=== PATIENT | male | born 1950 | race Caucasian/White ===

== ENCOUNTER 2017-09-04 13:27 | Emergency (ER) | payer MEDICARE, OTHER ==
--- NOTE | 2017-09-04 14:54 | ED Physician Documentation ---
PD HPI OPHTHO - Stated complaint Stated Complaint: LEFT EYE INJ - Chief complaint Chief Complaint: Heent - History obtained from History obtained from: Patient, Family - History of Present Illness Timing - onset: Today Timing - duration: Minutes Timing - details: Abrupt onset, Still present Location: Left Quality / character: Other (not much pain) Associated symptoms: Redness, Swelling. No: FB sensation, Photophobia, Double vision, Decreased vision, Loss of vision, Headache Contributing factors: Blunt trauma Similar symptoms before: Has not had sx before Recently seen: Not recently seen - Additional information Additional information: 66-year-old male was outside clearing brush when he was slapped in the left eye by a branch. He states that he had some immediate tearing he had some blood from the eye and he had some transient blurring of his vision. He denies any foreign body sensation he denies any pain with movement of the eye and he denies any persistent bleeding. Review of Systems Constitutional: denies: Fever Eyes: denies: Loss of vision, Decreased vision, Photophobia, Discharge, Irritation Ears: denies: Ear pain Nose: denies: Congestion Respiratory: denies: Cough PD PAST MEDICAL HISTORY - Past Medical History Past Medical History: No Other Past Medical History: HX malaria tx x2 - Past Surgical History Past Surgical History: Yes Ortho: Other - Present Medications Home Medications: Ambulatory Orders Medication Instructions Recorded Confirmed Neomycin/Poly/Dex Ophth Drops 1 drops LEFTEYE QID #1 bottle 09/04/17 [Maxitrol Ophth Drops] - Allergies Allergies/Adverse Reactions: Allergies Allergy/AdvReac Type Severity Reaction Status Date / Time Sulfa (Sulfonamide AdvReac Severe Anaphylaxis Verified 09/04/17 13:50 Antibiotics) - Social History Does the pt smoke?: No Smoking Status: Never smoker Does the pt drink ETOH?: Yes ETOH Use: Beer Does the pt have substance abuse?: No - Immunizations Immunizations are current?: Yes Immunizations: TDAP current <10years PD ED PE NORMAL - Vitals Vital signs reviewed: Yes (normal ) - General General: Alert and oriented X 3, No acute distress, Well developed/nourished - HEENT HEENT: PERRL, EOMI, Other (There is an impressive subconjunctival hemorrhage without evidence of hyphema or blood the posterior chamber. There is no restiction of movement to the extra-occular muscles. There is no FB under the lid and no trauma to the lid. ). No: Moist mucous membranes - Neck Neck: Supple, no meningeal sign, No bony TTP - Respiratory Respiratory: No respiratory distress - Derm Derm: Normal color, Warm and dry, No rash - Extremities Extremities: No deformity, No edema - Neuro Neuro: Alert and oriented X 3, No motor deficit, No sensory deficit, Normal speech Eye Opening: Spontaneous Motor: Obeys Commands Verbal: Oriented GCS Score: 15 - Psych Psych: Normal mood, Normal affect Results - Vitals Vitals: Vital Signs - 24 hr 09/04/17 13:46 Temperature 36.4 C L Heart Rate 53 L Respiratory 16 Rate Blood Pressure 122/75 O2 Saturation 98 Oxygen O2 Source Room air PD MEDICAL DECISION MAKING - ED course Complexity details: considered differential, d/w patient, d/w family ED course: 66-year-old male who ko over here from [facility] was clearing brush today when he was slapped in the face by a branch and has now an impressive subconjunctival hemorrhage without evidence of a hyphema or disruption of the globe. He has intact vision and no foreign body sensation. I discussed with the patient the natural history of subconjunctival hemorrhage and reasons to be concerned and return to the emergency department or to follow-up with ophthalmology. He is referred to Dr. Cardoso for follow-up as needed and I have asked him to use the Maxitrol eyedrops no longer than 3 days. - Sepsis Event Vital Signs: Vital Signs - 24 hr 09/04/17 13:46 Temperature 36.4 C L Heart Rate 53 L Respiratory 16 Rate Blood Pressure 122/75 O2 Saturation 98 Oxygen O2 Source Room air Departure - Departure Disposition: 01 Home, Self Care Clinical Impression: Subconjunctival hemorrhage of left eye Condition: Stable Instructions: ED Eye Injury Subconj Hemorrhage Follow-Up: Charlie Cardoso MD [Provider Admit Priv/Credential] - Prescriptions: Neomycin/Poly/Dex Ophth Drops [Maxitrol Ophth Drops] 1 drops LEFTEYE QID #1 bottle
[2017-09-04 15:22] VITALS: BP 107/74
== END 2017-09-04 15:20 | disposition home or self-care (01) ==
LOC: ED 13:27
DX: H11.32 Conjunctival hemorrhage, left eye (principal)
CPT/HCPCS: 99283

== ENCOUNTER 2018-10-22 09:18 | Outpatient (CLI) | payer MEDICARE, OTHER ==
--- NOTE | 2018-10-22 10:53 | CARDIAC PROCEDURE NOTE ---
DATE OF SERVICE: 10/22/2018 Physician: Lauren Gee MD, [facility] INDICATION: Dyspnea on exertion CARDIAC RISK FACTORS: Male gender, advanced age. PROCEDURE: After signing informed consent, patient underwent a Ino-protocol treadmill stress test. No imaging was ordered with this test. RESTING HEART RATE: 63. PEAK HEART RATE:150 (98% predicted maximum heart rate for age). RESTING BLOOD PRESSURE: 118/70. PEAK BLOOD PRESSURE: 150/65. Patient exercised for 4 minutes and 38 seconds on a Ion-protocol treadmill stress test. He achieved a peak heart rate of 150 (98% predicted max HR), and 6.6 METS. Patient described mild shortness of breath at stage I and then moderate to severe shortness of breath in stage II. Oxygen saturation was 96% in stage I and 97% at peak, on room air. Patient had no chest pain during this test. Patient had no "lightheadedness" which he also sometimes has with exertion. RESTING EKG: Normal sinus rhythm, left atrial and right atrial enlargement, right IVCD, RSR' in V1 and V2, early R/S transition. (These findings suggest right heart disease, ie. cor pulmonale). EKG AT PEAK: New ST segment depressions, upsloping, in V3 through V6. Rare PVC. SUMMARY: 1. Abnormal resting EKG consistent with cor pulmonale. 2. Poor exercise tolerance. 3. Nonspecific changes for coronary ischemia by EKG criteria. 4. No imaging was ordered with this test. RECOMMENDATIONS: 1. Repeat evaluation for coronary artery disease with an imaging stress test (stress-Echo, Lexiscan-nuclear test for example). 2. Consider 24-hour Holter monitor. 3. Recommend an Echo to evaluate for valvular heart disease and cor pulmonale. TD: 10/22/2018 10:33 MTDCarie
== END 2018-10-22 09:19 | disposition home or self-care (01) ==
LOC: DI 09:18
PROVIDERS: ATTEND Internal Medicine
DX: R06.09 Other forms of dyspnea (principal); R94.31 Abnormal electrocardiogram [ECG] [EKG]
CPT/HCPCS: 93017

== ENCOUNTER 2018-10-28 07:57 | Outpatient (CLI) | payer MEDICARE, OTHER | END 2018-10-28 07:58 | disposition home or self-care (01) | LOC: DI 07:57 | PROVIDERS: ATTEND Internal Medicine | DX: R94.30 Abnormal result of cardiovascular function study, unspecified (principal) | CPT/HCPCS: 93306 ==

== ENCOUNTER 2020-03-16 08:48 | Outpatient (CLI) | payer MEDICARE, OTHER ==
--- NOTE | 2020-03-16 13:41 | CT Report ---
PROCEDURE: UPPER EXTREMITY WO - LT INDICATIONS: PAIN IN LT SHLDR TECHNIQUE: Noncontrast 3 mm axial sections acquired of the left shoulder, with coronal and sagittal reformats. COMPARISON: None. FINDINGS: Image quality: Excellent. Bones: Shoulder alignment is anatomic. Moderate acromioclavicular joint and glenohumeral joint osteo arthritic changes are seen with joint space narrowing, subchondral sclerosis and small marginal osteo phyte formation. Benign subcortical sclerotic focus in glenoid is seen. No suspicious intraosseous le chloe. No fracture or dislocation. Visualized left upper ribs are intact. Soft tissues: Calcification over superior aspect of greater tuberosity at the distal supraspinatus i nsertion is seen consistent with calcific tendinitis. No full-thickness rotator cuff tendon rupture i s seen. No significant joint effusion or calcified intra-articular loose body. Sagittal images shows no significant rotator cuff muscle atrophy. IMPRESSION: 1. Moderate glenohumeral joint osteoarthritis and mild to moderate acromioclavicular joint osteoarthr itis. No fracture or dislocation. No suspicious intraosseous lesion. 2. Suggestion of calcific tendinitis involving distal supraspinatus with calcification over greater t uberosity. No full-thickness rotator cuff tendon rupture. No significant joint effusion or calcified intra-articular loose body. Reviewed by: Diogo Aldana MD on 03/16/2020 1:39 PM PST Approved by: Diogo Aldana MD on 03/16/2020 1:39 PM PST Station ID: [id number]
== END 2020-03-16 08:49 | disposition home or self-care (01) ==
LOC: DI 08:48
PROVIDERS: ATTEND Nurse Practitioner Family
DX: M19.012 Primary osteoarthritis, left shoulder (principal)

== ENCOUNTER 2021-06-20 11:15 | Outpatient (CLI) | payer MEDICARE, OTHER ==
--- NOTE | 2021-06-20 12:56 | Ultrasound Report ---
PROCEDURE: Bladder INDICATIONS: HESITANCY OF MICTURITION TECHNIQUE: Real-time scanning was performed of the bladder, with image documentation. COMPARISON: None. TECHNIQUE: Sonographic evaluation of the urinary bladder was performed. FINDINGS: URINARY BLADDER: No appreciable wall thickening or mass. Prevoid volume: 197 mL. Post void volume: 49 mL. Micturated volume: 147 mL Both ureteral jets are visualized. OTHER: Enlargement of the prostate measures 6.2 x 5.1 x 5.3 cm. IMPRESSION: 1.Prostatomegaly as detailed above. Reviewed by: Enrike Rowe MD on 06/20/2021 12:55 PM PDT Approved by: Enrike Rowe MD on 06/20/2021 12:55 PM PDT Station ID: [id number]
== END 2021-06-20 11:16 | disposition home or self-care (01) ==
LOC: DI 11:15
PROVIDERS: ATTEND Internal Medicine
DX: N40.1 Benign prostatic hyperplasia with lower urinary tract symptoms (principal); R39.11 Hesitancy of micturition

== ENCOUNTER 2022-06-07 13:33 | Outpatient (CLI) | payer MEDICARE, OTHER ==
--- NOTE | 2022-06-07 15:57 | MRI Report ---
PROCEDURE: LUMBAR SPINE WO INDICATIONS: LOW BACK PAIN TECHNIQUE: Noncontrast sagittal T1 spin echo and T2 fast echo, sagittal STIR, axial T1 and T2 fast spin echo thr ough the lumbar spine. In cases with scoliosis, additional coronal T2 fast spin echo may be performe d. COMPARISON: None. FINDINGS: Image quality: Excellent. Alignment and Curvature: There is normal bony alignment. Bone Marrow: Marrow is of normal overall signal. Minimal reactive endplate changes are present at L1 -2, L2-3. No acute vertebral body compression fractures. Spinal Cord: Conus medullaris terminates at the L1 level. Visualized cord demonstrates normal signa l and size. Paraspinous Soft Tissues: No paravertebral masses. Simple superior pole left renal cyst. There is a complex focus of signal intensity within the posterior aspect of the left mid pole. No priors are av ailable for comparison. Moderate disc desiccation is present throughout the lumbar spine. T12-L1: Mild disc bulge without spinal stenosis or foraminal narrowing. Mild facet and ligamentum fl avum hypertrophy. L1-L2: Minimal disc bulge without spinal stenosis. [id number] bilateral foraminal narrowing with facet and ligamentum flavum hypertrophy. L2-L3: Mild disc bulge without spinal stenosis. Mild right foraminal narrowing with facet and liga mentum flavum hypertrophy. L3-L4: Mild disc bulge without spinal stenosis. [id number] left foraminal narrowing with face t and ligamentum flavum hypertrophy. L4-L5: Minimal disc bulge without spinal stenosis. Moderate left and minimal right foraminal narrow ing with facet and ligamentum flavum hypertrophy. L5-S1: Mild disc bulge without spinal stenosis. Moderate left and mild right foraminal narrowing wi th facet and ligamentum flavum hypertrophy. IMPRESSION: Multilevel disc bulges. Multilevel foraminal narrowing most severe at L4-5 and L5-S1 secondary to facet arthropathy. Complex focus of intensity within the left kidney without priors available for comparison. While this could represent complex cyst, other etiologies cannot be excluded. Follow-up with ultrasound or CT f or further evaluation. Reviewed by: Radha Valenzuela MD on 06/07/2022 3:55 PM PDT Approved by: Radha Valenzuela MD on 06/07/2022 3:55 PM PDT Station ID: [id number]
== END 2022-06-07 13:34 | disposition home or self-care (01) ==
LOC: DI 13:33
PROVIDERS: ATTEND Physical Medicine & Rehabilitation Sports Medicine
DX: M51.35 Other intervertebral disc degeneration, thoracolumbar region (principal); M51.36 Other intervertebral disc degeneration, lumbar region; M47.815 Spondylosis without myelopathy or radiculopathy, thoracolumbar region; M47.816 Spondylosis without myelopathy or radiculopathy, lumbar region; M48.061 Spinal stenosis, lumbar region without neurogenic claudication; M51.37 Other intervertebral disc degeneration, lumbosacral region; M48.07 Spinal stenosis, lumbosacral region; M47.817 Spondylosis without myelopathy or radiculopathy, lumbosacral region

== ENCOUNTER 2022-08-07 18:05 | Outpatient (CLI) | payer MEDICARE, OTHER ==
--- NOTE | 2022-08-08 12:13 | Ultrasound Report ---
PROCEDURE: Retroperitoneal INDICATIONS: RENAL MASS TECHNIQUE: Real-time scanning was performed of the retroperitoneal organs, with image documentation. COMPARISON: MR 06/07/2022 FINDINGS: Kidneys: Kidneys are normal in size. Right kidney measures 10.8 cm long; left kidney measures 11.4 cm long. Right renal cortical thickness is 1.1 cm; left renal cortical thickness is 1.0 cm. The know n posterior left renal mass is not well appreciated. There is a benign cyst on the superior pole. Bladder: Pre-void bladder volume is 64 mL. Post-void residual is 2 mL. Pre-void images demonstrate no intraluminal masses or stones. On pre-void images, neither ureteral jets are noted with color Do ppler interrogation. (Of note, ureteral jets may not be detectable in up to 25% of cases due to insu fficient differences in specific gravity between ureteral and bladder urine). Miscellaneous: No free abdominal fluid. Prostatomegaly, measuring 73 g. IMPRESSION: The complex lesion on the posterior margin of the left kidney is not appreciated on this ultrasound. Consider CT or MRI (renal mass protocol) for further characterization based on appearance on comparis on lumbar CT. Reviewed by: Speedy Winn on 08/08/2022 12:11 PM PDT Approved by: Speedy Winn on 08/08/2022 12:11 PM PDT Station ID: [id number]
== END 2022-08-07 18:06 | disposition home or self-care (01) ==
LOC: DI 18:05
PROVIDERS: ATTEND Family Medicine
DX: N28.89 Other specified disorders of kidney and ureter (principal)

== ENCOUNTER 2022-08-15 11:51 | Outpatient (CLI) | payer MEDICARE, OTHER ==
[2022-08-15] MEDS ORDERED: iohexoL-300 100 ML VIAL ONE (12:13)
[2022-08-15] MEDS ORDERED: iohexoL-300 100 ML VIAL IVP ONE (12:26)
--- NOTE | 2022-08-15 14:53 | CT Report ---
PROCEDURE: ABDOMEN W/WO INDICATIONS: KIDNEY CYST CONTRAST: 140ml Omnipaque 300 TECHNIQUE: [address] scan of the kidneys was performed. Non-contrast and multiphasic contrast images were recor ded and evaluated at appropriate window settings. Reformats: coronal and sagittal. For radiation dose reduction, the following was used: automated exposure control, adjustment of mA and/or kV according to patient size. COMPARISON: Lumbar MRI 06/07/2022, ultrasound 08/07/2022 FINDINGS: Image quality: Excellent. Genitourinary: Along the posterior margin of the left kidney, there is a 1.0 cm hypoattenuating lesi on which demonstrates enhancement, which increases on the delayed phase. Renal vein is widely patent. No retroperitoneal adenopathy. No extension beyond the renal fascia. OTHER: Lung bases and heart: Unremarkable. Liver: Subcentimter hypoattenuating liver lesions, too small to characterize by CT. Gallbladder and biliary tree: Cholelithiasis without wall thickening. No biliary dilation. Spleen: No splenomegaly. Pancreas: No pancreatic ductal dilation. Adrenals: No adrenal nodule. Bowel and peritoneum: No bowel distension. No pathologic free fluid. Lymph nodes: No central or retroperitoneal adenopathy. Vessels: No infrarenal aortic aneurysm. Bones: No aggressive osseous abnormality. Other: No significant ventral hernia. IMPRESSION: Along the posterior margin of the left kidney, there is a 1.0 cm hypoattenuating lesion which demonst rates enhancement, which increases on the delayed phase. Findings suggest a tiny renal cell carcinoma versus lipid poor angiomyolipoma. Recommend urology referral. Cholelithiasis without evidence of acute cholecystitis. Reviewed by: Speedy Winn on 08/15/2022 2:52 PM PDT Approved by: Speedy Winn on 08/15/2022 2:52 PM PDT Station ID: [id number]
== END 2022-08-15 11:52 | disposition home or self-care (01) ==
LOC: DI 11:51
PROVIDERS: ATTEND Family Medicine
DX: N28.1 Cyst of kidney, acquired (principal); K80.20 Calculus of gallbladder without cholecystitis without obstruction
CPT/HCPCS: 74170; Q9967

== ENCOUNTER 2022-10-23 09:44 | Day surgery (SDC) | payer MEDICARE, OTHER ==
[2022-10-23] MEDS ORDERED: LACTATED RINGERS 1,000 ML IV ONE (09:55)
--- NOTE | 2022-10-23 10:25 | ANESTHESIA ---
Pre-Anesthesia VS, & Labs - Diagnosis screening - Procedure colonoscopy Vital Signs: Temp Pulse Resp BP Pulse Ox O2 Flow Rate 36.2 C L 83 14 125/72 98 10/23/22 10:02 10/23/22 10:02 10/23/22 10:02 10/23/22 10:16 10/23/22 10:02 Height: 6 ft 1 in Weight (kg): 77 kg Body Mass Index: 22.4 BMI Classification: Normal - NPO >8 hours - Lab Results Lab results reviewed: No Home Medications and Allergies Home Medications: Ambulatory Orders Celecoxib [CeleBREX] 200 mg PO DAILY PRN 10/23/22 Celecoxib [CeleBREX] 200 mg PO DAILY PRN 10/23/22 Allergies/Adverse Reactions: Allergies Allergy/AdvReac Type Severity Reaction Status Date / Time Sulfa (Sulfonamide AdvReac Severe Anaphylaxis Verified 10/23/22 09:52 Antibiotics) Anes History & Medical History - Anesthetic History Anesthesia Complications: reports: No previous complications Family history of Anesthesia Complications: Denies Family history of Malignant Hyperthermia: Denies - Medical History Cardiovascular: reports: None Pulmonary: reports: None Gastrointestinal: reports: None, Other Urinary: reports: None Musculoskeletal: reports: Chronic back pain Smoking Status: Never smoker Psychosocial: reports: Alcohol - Surgical History Orthopedic: reports: Hip replacement, Other Exam General: Alert, Oriented x3, Cooperative Dental: WNL Mouth Openin Fingerbreadth Neck Mobility: Normal Thyromental Distance: 4-6 cm Respiratory: Lungs clear, Normal breath sounds, No respiratory distress Cardiovascular: Regular rate Neurological: Normal speech Mental/Cognitive Status: Alert/Oriented X3, Normal for patient Cognitive Status: Within normal limits Plan Anesthesia Type: Total IV Consent for Procedure(s) Verified and Reviewed: Yes Code Status: Attempt Resuscitation ASA classification: 2-Mild systemic disease Is this case an emergency?: No
[2022-10-23] MEDS ORDERED: PROPOFOL 500 MG/50 ML 500 MG/50 ML VIAL ONE (10:47)
[2022-10-23] MEDS ORDERED: MIDAZOLAM 2 MG/2 ML VIAL ONE (10:47)
[2022-10-23] MEDS ORDERED: LIDOCAINE-MPF 2% 5 ML VIAL ONE (11:12)
[2022-10-23] MEDS ORDERED: LACTATED RINGERS 400 ML IV ONE (11:30)
[2022-10-23 11:44] VITALS: O2SAT 96
[2022-10-23 12:13] VITALS: BP 120/90
--- NOTE | 2022-10-23 12:50 | ANESTHESIA POST OP EVALUATION ---
Anesthesia Post Eval - Post Anesthesia Eval Vitals: Last Vital Signs Temp 36.2 C L 10/23/22 12:04 Pulse 66 10/23/22 12:04 Resp 16 10/23/22 12:04 BP 120/90 H 10/23/22 12:04 Pulse Ox 96 10/23/22 12:04 O2 Flow Rate CV Function Including HR & BP: Stable Pain Control: Satisfactory Nausea & Vomiting: Negative Mental Status: Baseline Respiratory Status: Airway Patent Hydration Status: Satisfactory Anesthesia Complications: None
== END 2022-10-23 09:45 | disposition home or self-care (01) ==
LOC: SDS 09:44
PROVIDERS: ATTEND Surgery
PROC: 0DBH8ZX Excision of Cecum, Via Natural or Artificial Opening Endoscopic, Diagnostic (ICD-10-PCS; 2022-10-23)
PROC: 0DBK8ZX Excision of Ascending Colon, Via Natural or Artificial Opening Endoscopic, Diagnostic (ICD-10-PCS; principal; 2022-10-23 10:45)
DX: Z12.11 Encounter for screening for malignant neoplasm of colon (principal); D12.2 Benign neoplasm of ascending colon; D12.0 Benign neoplasm of cecum; K64.1 Second degree hemorrhoids; Z87.891 Personal history of nicotine dependence
CPT/HCPCS: 45380; J7120

== ENCOUNTER 2023-07-15 12:22 | Outpatient (CLI) | payer MEDICARE, OTHER ==
[2023-07-15 12:49] LABS: CREATININE 0.9 mg/dL (0.6-1.3)
[2023-07-15] MEDS: iohexoL-300 100 ML VIAL IVP ONE (14:11)
--- NOTE | 2023-07-15 16:30 | CT Report ---
PROCEDURE: Abdomen W/WO INDICATIONS: RENAL MASS TECHNIQUE: Axial CT images were obtained of the abdomen using renal protocol (multiple phases includi ng noncontrast). Multiplanar reformats were obtained. IV contrast was used COMPARISON: 08/15/2022 FINDINGS: Image quality: Diagnostic Lower chest: Unremarkable lung bases. Normal heart size where visualized Liver: Unremarkable. Similar subcentimeter lesions are too small to characterize, possibly cysts or h emangiomas, attention on follow-up. Gallbladder and biliary system: Cholelithiasis. No pathologic biliary ductal dilation. Pancreas: No ductal dilation Spleen: Nonenlarged Adrenals: No discrete nodule Kidneys: No hydronephrosis. No calcified obstructing stone. 1 cm left posterior cortex slightly exoph ytic lesion shows minimal to no enhancement from pre and postcontrast phases on this study. There is intrinsic, mildly heterogeneous hyperdensity that becomes more heterogeneous on post contrast imaging (subjective enhancement). Vessels and lymph nodes: The left renal vein appears patent. No pathologic lymph nodes by size criter ia. There are atherosclerotic calcifications. Bowel and peritoneum: No pathologic ascites or drainable abscess. No small bowel obstruction. Nonspec ific mild omental mesenteric congestion. Body wall: Unremarkable Bones: Degenerative changes. No acute or suspicious finding. IMPRESSION: 1 cm left posterior cortex renal lesion shows questionable subjective enhancement, concerning for hem orrhagic cyst with artifactual pseudoenhancement, indolent papillary RCC, or lipid poor angiomyolipom a. This is stable compared to 08/15/2022. Consider continued imaging surveillance if clinically indica ken. Stability and imaging characteristics make this low suspicion for an aggressive malignancy. Reviewed by: Garcia Cespedes MD on 07/15/2023 4:29 PM PDT Approved by: Garcia Cespedes MD on 07/15/2023 4:29 PM PDT Station ID: [id number]
== END 2023-07-15 12:23 | disposition home or self-care (01) ==
LOC: LAB 12:22
PROVIDERS: ATTEND Urology
DX: N28.89 Other specified disorders of kidney and ureter (principal)
CPT/HCPCS: 36415; 82565

== ENCOUNTER 2023-08-18 07:43 | Outpatient (CLI) | payer MEDICARE, OTHER ==
--- NOTE | 2023-08-18 08:44 | Ultrasound Report ---
PROCEDURE: Aorta Screening INDICATIONS: SCREENING FOR AAA, HISTORY OF SMOKING TECHNIQUE: Real time scanning was performed of the aorta and iliac arteries, with image documentatio n. COMPARISON: None. FINDINGS: Aorta: Proximal aortic diameter measures 2.1 x 2.3 cm. Mid-aorta measures 1.8 x 2.2 cm. Distal aor tic diameter is 1.6 x 2.0 cm. Minimal amount of atherosclerotic plaque is seen in distal abdominal a otis. Iliac arteries: Right common iliac artery measures 1.2 x 1.0 cm. Left common iliac artery measures 1.0 x 0.9 cm. IMPRESSION: No abdominal aortic aneurysm. Minimal amount of atherosclerotic plaque in distal abdominal aorta. Recommended intervals for follow-up imaging of ectatic aortas and abdominal aortic aneurysms, per ACR consensus guidelines: 2.5-2.9 cm: 5 years 3.0-3.4 cm: 3 years 3.5-3.9 cm: 2 years 4.0-4.4 cm: 1 year 4.5-4.9 cm: 6 months + endovascular referral 5.0-5.5 cm: 3-6 months + endovascular referral Reviewed by: Diogo Aldana MD on 08/18/2023 8:43 AM PDT Approved by: Diogo Aldana MD on 08/18/2023 8:43 AM PDT Station ID: [id number]
== END 2023-08-18 07:44 | disposition home or self-care (01) ==
LOC: DI 07:43
PROVIDERS: ATTEND Nurse Practitioner Family
DX: Z13.6 Encounter for screening for cardiovascular disorders (principal); I70.0 Atherosclerosis of aorta; Z87.891 Personal history of nicotine dependence